=== PATIENT | male | born 1955 | race Caucasian/White ===

== ENCOUNTER 2016-10-29 07:59 | Day surgery (SDC) | payer BC, OTHER ==
[2016-10-06 14:08] VITALS: BMI 25.0
[2016-10-29] MEDS ORDERED: PROPOFOL 20 ML ONE ×2 (08:10)
[2016-10-29] MEDS ORDERED: LIDOCAINE HCL/PF 2% SDV 5ML VIAL ONE (08:11)
[2016-10-29 10:17] VITALS: PULSE 63; TEMP 98.6
[2016-10-29 10:26] VITALS: BP 105/68
== END 2016-10-29 10:00 | disposition home or self-care (01) ==
LOC: FASU-ENDO 07:59
PROVIDERS: ATTEND Internal Medicine Gastroenterology
PROC: 0DJD8ZZ Inspection of Lower Intestinal Tract, Via Natural or Artificial Opening Endoscopic (ICD-10-PCS; principal; 2016-10-29 08:54)
DX: Z86.010 Personal history of colon polyps (principal); Z80.0 Family history of malignant neoplasm of digestive organs; K57.30 Diverticulosis of large intestine without perforation or abscess without bleeding